=== PATIENT | male | born 1940 | race Caucasian/White ===

== ENCOUNTER 2018-03-11 15:34 | Emergency (ER) | payer MEDICARE ==
[~2018-03-11] VITALS: Ht 15.2 cm; Wt 100.0 kg
[2018-03-11] MEDS ORDERED: XARELTO20 MG PO (17:15)
[2018-03-11] MEDS ORDERED: METFORMIN HCL500 MG PO (17:16)
[2018-03-11] MEDS ORDERED: ENALAPRIL MALE2.5 MG PO (17:16)
[2018-03-11] MEDS ORDERED: METOPROLOL SUCC25 MG PO (17:17)
[2018-03-11] MEDS ORDERED: ATORVASTATIN CA40 MG PO (17:17)
[2018-03-11] MEDS ORDERED: KEFLEX500 MG PO (18:57)
[2018-03-11 19:11] VITALS: BP 123/79
== END 2018-03-11 19:11 | disposition home or self-care (01) ==
LOC: ED 15:34
PROC: 0HQFXZZ Repair Right Hand Skin, External Approach (ICD-10-PCS; principal; 2018-03-11)
DX: S61.411A Laceration without foreign body of right hand, initial encounter (principal); E11.9 Type 2 diabetes mellitus without complications; W29.8XXA Contact with other powered hand tools and household machinery, initial encounter; Y92.009 Unspecified place in unspecified non-institutional (private) residence as the place of occurrence of the external cause; Z95.5 Presence of coronary angioplasty implant and graft

== ENCOUNTER 2018-03-23 09:53 | Emergency (ER) | payer MEDICARE ==
[~2018-03-23] VITALS: Ht 175.3 cm; Wt 105.0 kg
[~2018-03-23 09:53] MED LIST: ATORVASTATIN CA40 MG PO; ENALAPRIL MALE2.5 MG PO; KEFLEX500 MG PO; METFORMIN HCL500 MG PO; METOPROLOL SUCC25 MG PO; XARELTO20 MG PO
[2018-03-23] MEDS ORDERED: MUPIROCIN21 TOP (10:11)
[2018-03-23 11:05] VITALS: BP 124/75
== END 2018-03-23 11:05 | disposition home or self-care (01) ==
LOC: ED 09:53
DX: S61.411D Laceration without foreign body of right hand, subsequent encounter (principal)